=== PATIENT | male | born 1940 | race Caucasian/White ===

== ENCOUNTER 2016-06-29 17:40 | Emergency (ER) | payer OTHER, MEDICARE ==
[~2016-06-29] VITALS: Ht 177.8 cm; Wt 108.9 kg
--- NOTE | 2016-06-29 18:35 | ED MVC/FALL/TRAUMA COMPLAINT ---
History of Present Illness General Chief Complaint: Fall Stated Complaint: JAW PAIN,LT ELBOW PAIN S/P FALL Source: patient Exam Limitations: no limitations Vital Signs & Intake/Output Vital Signs & Intake/Output Vital Signs Date Time Temp Pulse Resp B/P B/P Pulse O2 O2 Flow FiO2 Mean Ox Delivery Rate 06/29 2122 97.6 62 18 129/74 95 Room Air 06/29 1809 96 06/29 1759 97.7 68 18 141/96 95 Room Air Allergies Coded Allergies: adhesive tape (RASH, PAPER TAPE OKAY 06/29/16) Reconcile Medications Atorvastatin Calcium 10 MG TABLET 1 TAB PO DAILY PROPHYLAXIS TIA (Reported) Cholecalciferol (Vitamin D3) (Vitamin D) (Unknown Strength) CAPSULE (Unknown Dose) PO DAILY SUPPLEMENT (Reported) Escitalopram Oxalate 10 MG TABLET 1 TAB PO DAILY MENTAL HEALTH (Reported) Ferrous Sulfate 325 MG (65 MG IRON) TABLET 1 TAB PO DAILY SUPPLEMENT ( Reported) Lorazepam (Ativan) (Unknown Strength) TABLET (Unknown Dose) PO AD PRN ANXIETY (Reported) Multivitamin (Multi-Day Vitamins) 1 EACH TABLET 1 TAB PO DAILY SUPPLEMENT ( Reported) Naltrexone HCl/Bupropion HCl (Contrave ER 8-90 MG Tablet) (Unknown Strength) TABLET.ER (Unknown Dose) PO BID WEIGHTLOSS (Reported) Rivaroxaban (Xarelto) 20 MG TABLET 1 TAB PO DAILY BLOOD THINNER (Reported) with food Sotalol HCl (Sotalol) 80 MG TABLET 1 TAB PO BID AFIB (Reported) Tramadol HCl 50 MG TABLET 1 TAB PO BIDP PRN pain Triage Note: 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 PT C/O LEFT ELBOW PAIN 10/10, LAC TO LOWER LIP NOTED, BLEEDING CONTROLLED. PT UNSURE OF LAST TETANUS VACCINATION. PT ON XARELTO. PT DENIES LOC. MEDICATED WITH TYLENOL 650MG IN TRIAGE. ICE PACK PROVIDED. Triage Nurses Notes Reviewed? yes HPI: This patient is a 76-year-old male who presented to the emergency department today for evaluation of pain in his elbow and jaw status post fall. The patient reported that he was walking into his garage when he tripped and fell forward. He reported that he is having 12 out of 10 pain in his left elbow as well as pain in his right jaw. He is on blood thinners. He denied any neck pain or head pain. No headaches or visual changes. The patient denied any precipitating factors it does not, dizziness, lightheadedness. No syncope. The patient denied any numbness or tingling in his extremities. No abdominal pain, nausea, or vomiting. (UMBERTO MEDINA PA-C) Past History Travel History Traveled to [place] past 21 day No Medical History Any Pertinent Medical History? see below for history Cardiovascular: AFIB Surgical History Surgical History: non-contributory Psychosocial History What is your primary language Polish Tobacco Use: Never used Family History Hx Contributory? No (UMBERTO MEDINA PA-C) Review of Systems Review of Systems Constitutional: Reports: no symptoms. Eyes: Reports: no symptoms. Ears, Nose, Throat, Mouth: Reports: no symptoms. Respiratory: Reports: no symptoms. Cardiovascular: Reports: no symptoms. Gastrointestinal/Abdominal: Reports: no symptoms. Genitourinary: Reports: no symptoms. Musculoskeletal: Reports: see HPI. Skin: Reports: no symptoms. Neurological/Psychological: Reports: no symptoms. All Other Systems: Reviewed and Negative (UMBERTO MEDINA PA-C) Physical Exam Physical Exam General Appearance: well developed/nourished, no apparent distress, alert, awake Comments: Well-developed well-nourished person in no acute distress HEENT: Normal EENT exam, head normocephalic/atraumatic with no bony deformity/ step-offs of the skull, no tenderness to palpation over the scalp, moist mucous membranes. No step-offs of the maxillofacial bones. No tenderness to palpation of the maxillofacial bones. Approximately 1 cm in length, linear, 70 units laceration to the inside of the lower lip with no active bleeding and no foreign body appreciated in the wound site. Pupils equally round and reactive to light. Nose is atraumatic. Neck: Supple, no lymphadenopathy. No midline tenderness Back: Normal inspection Cardiovascular: Regular rate and rhythms no murmurs Respiratory: No respiratory distress. Speaking in full sentences Left upper extremity: Mild effusion surrounding the elbow. No overlying ecchymosis or erythema. Full range of motion at the shoulder and wrist. Range of motion of the elbow limited due to pain. No bony or muscular deformities appreciated. Radial brachial pulses 2+ and strong. Capillary refill less than 2 seconds. Tenderness to palpation over the lateral epicondyle Neuro: Alert oriented x3, cranial nerves II through XII grossly intact. Skin: No appreciable rash on exposed skin, skin is warm and dry. Psych: Mood and affect is normal Core Measures ACS in differential dx? No Severe Sepsis Present: No Septic Shock Present: No (ADAM WATSON,UMBERTO) Progress Differential Diagnosis: aoritic dissection, abd injury, C/T/L spine injury, ext injury, ICH, pelvis injury, spinal cord injury Plan of Care: Orders Procedure Date/time Status Durable Medical Equipment 06/29 1946 Active Diagnostic Imaging: Viewed by Me: Radiology Read, CT Scan. Discussed w/RAD: Radiology Read, CT Scan. Radiology Impression: PATIENT: KATHERINE BLANCO PRESENT AGE: 76 PATIENT ACCOUNT NO: [id number] : 42 LOCATION: ER ORDERING PHYSICIAN: UMBERTO MEDINA PA-C SERVICE DATE: 06/29/16 EXAM TYPE: RAD - XRY-ELBOW 3 OR MORE VIEWS, L EXAMINATION: XR ELBOW, LEFT CLINICAL INFORMATION: Injury. Pain. COMPARISON: None TECHNIQUE: 6 views of the left elbow. A true lateral view was not obtained. FINDINGS: There is a subtle impacted fracture extending transversely through the radial neck. Ulna are intact. Probable joint hemarthrosis but difficult to assess without true lateral view. No dislocation IMPRESSION: Subtle transverse impacted fracture of the radial neck. DICTATED BY: BERNADETTE PANDYA MD DATE/TIME DICTATED:06/29/161843 STRAP CUTTER:RACHEAL DATE/TIME TRANSCRIBED:06/29/161843 CONFIDENTIAL, DO NOT COPY WITHOUT APPROPRIATE AUTHORIZATION. <Electronically signed in Other Vendor System> SIGNED BY: BERNADETTE PANDYA MD 06/29/161848, PATIENT: KATHERINE BLANCO PRESENT AGE: 76 PATIENT ACCOUNT NO: [id number] : 42 LOCATION: ER ORDERING PHYSICIAN: UMBERTO MEDINA PA-C SERVICE DATE: 06/29/16 EXAM TYPE: CAT - CT HEAD WO IV CONTRAST; CT MAXILLOFACIAL W/O CON Indication: Fall EXAMINATION: CT brain and maxillofacial bones. FINDINGS: CT brain Axial imaging noncontrast. FINDINGS: No acute finding. No midline shift. No mass effect. No hemorrhage. Dense calcification in the falx. White matter ischemic change and atrophy is present. No extra-axial collection. Facial bones Axial imaging with coronal and sagittal reformatted images. FINDINGS: Limitation from dental amalgam. There is opacification in the right maxillary sinus likely indicate sinus disease. No evidence for fracture. IMPRESSION: No fracture in the facial bones. There is dense opacification of the right maxillary sinus likely indicating sinus disease. Otherwise scattered sinus disease in the remainder of the sinuses. Negative acute noncontrast CT of the brain. Atrophy and white matter ischemic changes noted. DICTATED BY: ZAK HARRELL MD DATE/TIME DICTATED:06/29/162146 STRAP CUTTER:RACHEAL DATE/TIME TRANSCRIBED:2146 CONFIDENTIAL, DO NOT COPY WITHOUT APPROPRIATE AUTHORIZATION. < Electronically signed in Other Vendor System> SIGNED BY: ZAK HARRELL MD 06/29/162154 Comments: 06/29/2016 9:09:12 PM: The patient has been taken to CT scan for his maxillofacial and head CTs and has refused to lay down on the CT scan multiple times. He is reporting that he does want a CT scan as he is now complaining of nose soreness. However, the dental laboratory technician reported that he is refusing to lay down and stay still for the scan. The patient will receive 2 mg IM of morphine and we will try again. 06/29/2016 9:45:39 PM: The patient was able to withstand laying down for the CT scan to be executed. Patient is now refusing sutures to the inside of his lower lip. No active bleeding. Mild edema to the lower lip. No foreign body appreciated. (ADAM WATSON,UMBERTO) Departure Departure Disposition: HOME OR SELF CARE Condition: Stable Clinical Impression Primary Impression: Fracture of radial neck, left, closed Qualifiers: Encounter type: initial encounter Fracture alignment: nondisplaced Qualified Code: S52.135A - Nondisplaced fracture of neck of left radius, initial encounter for closed fracture Secondary Impressions: Fall Qualifiers: Encounter type: initial encounter Qualified Code: W19.XXXA - Unspecified fall, initial encounter Laceration Referrals: LARRY RECINOS MD (PCP/Family) MIKE MELGAR MD Additional Instructions: You may take [id number] Tylenol as directed. Take medication for pain as needed for breakthrough pain. Please call the orthopedist whose information has been provided to in this packet to schedule a follow-up appointment. Keep the splint in place that was applied here in the emergency Department. Use the sling for extra support. Do not get the splint wet. Return for any worsening symptoms or concerns. Departure Forms: Customer Survey General Discharge Information Prescriptions: Current Visit Scripts Tramadol HCl 1 TAB PO BIDP PRN pain #8 TAB (ADAM WATSON,UMBERTO) PA/FAST FOOD DELIVERY DRIVER Co-Sign Statement Statement: ED Attending supervision documentation- [] I saw and evaluated the patient. I have also reviewed all the pertinent lab results and diagnostic results. I agree with the findings and the plan of care as documented in the PA's/FAST FOOD DELIVERY DRIVER's documentation. [x] I have reviewed the ED Record and agree with the PA's/FAST FOOD DELIVERY DRIVER's documentation. [] Additions or exceptions (if any) to the PAs/FAST FOOD DELIVERY DRIVER's note and plan are summarized below: [] (ALISSON PIZANO,ANIL Sims) Procedures Splinting Location: left arm Manual Alignment Performed: No Hand-Made Type: orthoglass Splint: sugar-tong Splint Applied By: splint applied by me Pre-Proc Neuro Vasc Exam: normal Post-Proc Neuro Vasc Exam: normal Progress: patient tolerated the procedure well (ADAM AWTSON,UMBERTO)
--- NOTE | 2016-06-29 18:49 | RADIOLOGY REPORT ---
EXAMINATION: XR ELBOW, LEFT CLINICAL INFORMATION: Injury. Pain. COMPARISON: None TECHNIQUE: 6 views of the left elbow. A true lateral view was not obtained. FINDINGS: There is a subtle impacted fracture extending transversely through the radial neck. Ulna are intact. Probable joint hemarthrosis but difficult to assess without true lateral view. No dislocation IMPRESSION: Subtle transverse impacted fracture of the radial neck.
[2016-06-29] MEDS ORDERED: ESCITALOPRAM OX10 MG PO (20:09)
[2016-06-29] MEDS ORDERED: ATORVASTATIN CA10 M1 PO (20:09)
[2016-06-29] MEDS ORDERED: SOTALOL80 M1 PO (20:09)
[2016-06-29] MEDS ORDERED: FERROUS SULFAT325 M3 PO (20:10)
[2016-06-29] MEDS ORDERED: MULTI-DAY VITA1 EACH PO (20:10)
[2016-06-29] MEDS ORDERED: XARELTO20 M2 PO (20:10)
[2016-06-29] MEDS ORDERED: VITAMIN D1000 UNI1 PO (20:11)
[2016-06-29] MEDS ORDERED: CONTRAVE ER 8-1 EACH PO (20:12)
[2016-06-29] MEDS ORDERED: ATIVAN0.5 M1 PO (20:12)
[2016-06-29 21:23] VITALS: BP 129/74
[2016-06-29] MEDS ORDERED: TRAMADOL HCL50 M1 PO (21:47)
--- NOTE | 2016-06-29 21:55 | CT SCAN REPORT ---
Indication: Fall EXAMINATION: CT brain and maxillofacial bones. FINDINGS: CT brain Axial imaging noncontrast. FINDINGS: No acute finding. No midline shift. No mass effect. No hemorrhage. Dense calcification in the falx. White matter ischemic change and atrophy is present. No extra-axial collection. Facial bones Axial imaging with coronal and sagittal reformatted images. FINDINGS: Limitation from dental amalgam. There is opacification in the right maxillary sinus likely indicate sinus disease. No evidence for fracture. IMPRESSION: No fracture in the facial bones. There is dense opacification of the right maxillary sinus likely indicating sinus disease. Otherwise scattered sinus disease in the remainder of the sinuses. Negative acute noncontrast CT of the brain. Atrophy and white matter ischemic changes noted.
== END 2016-06-29 22:05 ==
LOC: ERH 17:40
DX: S52.132A Displaced fracture of neck of left radius, initial encounter for closed fracture (principal); S01.511A Laceration without foreign body of lip, initial encounter; W18.09XA Striking against other object with subsequent fall, initial encounter; Y92.015 Private garage of single-family (private) house as the place of occurrence of the external cause; Y93.9 Activity, unspecified
CPT/HCPCS: 73080-LT; 90714; 96372